=== PATIENT | female | born 1940 | race Caucasian/White ===

== ENCOUNTER 2020-11-21 12:17 | Emergency (ER) | payer MEDICARE, BC ==
--- NOTE | 2020-11-21 12:38 | EDM.PDOC ---
ED HPI GENERAL MEDICAL PROBLEM - General Chief Complaint: Cardiovascular Problem Stated Complaint: SENT BY [place] ECHO Time Seen by Provider: 11/21/20 12:23 Source of Information: Reports: Patient, Provider History Limitations: Reports: No Limitations - History of Present Illness INITIAL COMMENTS - FREE TEXT/NARRATIVE: 80-year-old female sent to the emergency department from [facility] where she had just undergone an echocardiogram. Apparently was being interpreted by cardiology at [facility] in [place] and they identified either a myxoma in her heart or a thrombus. It was felt that she needed to be brought to [place] to be admitted for further evaluation in this regard. Patient was undergoing cardiac testing in preparation for left total hip replacement. She had undergone 3 stent placement in 2002 after suffering a mild heart attack. She does not think she has any history of congestive failure. Denies cough or sputum production. She denies any history of TIA or stroke recently. 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 She denies any recent chest pains or dyspnea. Patient did have both of her COVID-19 vaccine shots finished up in June of this year. Onset: Today (Echocardiogram identified an abnormality today within her heart. Unclear of its etiology at this time) Onset Date: 11/21/20 Location: Reports: Other (Apparently has a mass within her heart. Unclear if this is thrombus versus myxoma) Quality: Reports: Other (Asymptomatic) Improves with: Reports: None Worsens with: Reports: None Context: Reports: Other (Abnormal echocardiogram today with discovery of a mass within her heart either thrombus or myxoma). Denies: Activity, Exercise, Lifting, Sick Contact, Trauma Associated Symptoms: Reports: Malaise. 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) - Related Data Allergies Allergy/AdvReac Type Severity Reaction Status Date / Time Sulfa (Sulfonamide Allergy Joint Pain Verified 11/21/20 12:31 Antibiotics) Home Meds: Home Meds Isosorbide Mononitrate [Isosorbide Mononitrate ER] 30 mg PO DAILY 10/14/14 [History] Losartan [Cozaar] 100 mg PO DAILY 10/14/14 [History] Simvastatin [Zocor] 40 mg PO DAILY 10/14/14 [History] Triamterene/Hydrochlorothiazid [Triamterene-HCTZ 75-50 MG] 1 tab PO DAILY 10/14/14 [History] cloNIDine [Catapres] 0.2 mg PO DAILY 10/14/14 [History] metFORMIN HCl [Metformin HCl] 1,000 mg PO ACBREAKFAST 10/14/14 [History] metFORMIN HCl [Metformin HCl] 500 mg PO ACDINNER 10/14/14 [History] Metoprolol Tartrate [Lopressor] 100 mg PO BID 10/15/14 [History] Aspirin [Halfprin] 81 mg PO DAILY 11/21/20 [History] Cetirizine [ZyrTEC] 10 mg PO DAILY 11/21/20 [History] Latanoprost/Pf [Latanoprost 0.005% Eye Drop] 1 applicful EYEBOTH BEDTIME 11/21/20 [History] Omeprazole Magnesium [Prilosec Otc] 20 mg PO DAILY 11/21/20 [History] Psyllium [Metamucil] 1 gm PO DAILY 11/21/20 [History] Timolol Maleate/PF [Timolol Maleate 0.5% Eye Drop] 1 applicful EYEBOTH DAILY 11/21/20 [History] Past Medical History Other HEENT History: right ischemic optic neuropathy Cardiovascular History: Reports: High Cholesterol, Hypertension, SC (She believes she has 3 stent placement in 2002 and did have a mild heart attack at that time.), Stents Other Cardiovascular History: Discovery today November 21, 2020 of a mass within her heart either myxoma or thrombus. 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 - Past Surgical History Cardiovascular Surgical History: Reports: Coronary Artery Stent (X3 placed in 2002.) Other Cardiovascular Surgeries/Procedures: stent x3 GI Surgical History: Reports: Samm Fundoplication Musculoskeletal Surgical History: Reports: Hip Replacement, Shoulder Surgery (Bilateral reversal total shoulder replacements), Other (See Below) (Hoping to have the left hip replaced soon) Other Musculoskeletal Surgeries/Procedures:: right hip & left shoulder replacement Social & Family History - Living Situation & Occupation Living situation: Reports: Occupation: Retired ED ROS GENERAL - Review of Systems Review Of Systems: See Below Constitutional: Reports: Fatigue. Denies: Fever, Chills, Malaise, Weakness, Decreased Appetite, Weight Loss HEENT: Reports: Glasses, Other (Has poor vision in the right eye and never recovered after his central retinal artery occlusion several years ago. Is followed by Dr. Galindo for this) Respiratory: Reports: No Symptoms Cardiovascular: Reports: Blood Pressure Problem, Dyspnea on Exertion. Denies: Chest Pain, Claudication, Edema, Lightheadedness, Orthopnea, Palpitations Endocrine: Reports: Fatigue GI/Abdominal: Reports: Constipation (There is no problems with constipation.) : Reports: Frequency, Incontinence (Rare incontinence. Urge and stress components), Other Musculoskeletal: Reports: Joint Pain (Most of her pain currently is in her left hip which is due to be replaced. She has generalized osteoarthritis involving hands feet ankles knees back and neck.) Skin: Reports: No Symptoms Neurological: Reports: No Symptoms Psychiatric: Reports: No Symptoms Hematologic/Lymphatic: Reports: No Symptoms Immunologic: Reports: No Symptoms ED EXAM, GENERAL - Physical Exam Exam: See Below Exam Limited By: No Limitations General Appearance: Alert, WD/WN, Anxious, Other (Temperature is 35.5 degrees which is likely inaccurate. Heart rate 60 and sinus. Respiratory to 16 with O2 sats of 98% on room air. BP 188/79) Eye Exam: Bilateral Eye: Normal Inspection (No blepharal pallor or scleral icterus.), PERRL Ears: Normal TMs Throat/Mouth: Normal Inspection, Normal Lips, Normal Oropharynx Head: Atraumatic, Normocephalic Neck: Normal Inspection, Supple, Non-Tender, Full Range of Motion, Other (Patient reports she has had carotid ultrasound done on several occasions. Cannot remember when it was last done.). No: Carotid Bruit, Lymphadenopathy (L), Lymphadenopathy (R) Respiratory/Chest: No Respiratory Distress, Lungs Clear, Normal Breath Sounds, No Accessory Muscle Use. No: Respiratory Distress Cardiovascular: Normal Peripheral Pulses, Regular Rate, Rhythm, No Edema, No Gallop, No Murmur, No Rub Peripheral Pulses: 2+: Carotid (L), Carotid (R), Posterior Tibial (L), Posterior Tibial (R), Dorsalis Pedis (L), Dorsalis Pedis (R) GI/Abdominal: Normal Bowel Sounds, Soft, Non-Tender, No Organomegaly, No Mass, Pelvis Stable, Distended (Mildly distended and firm to palpation.), Other (Surgical scar secondary to Samm fundoplication) Back Exam: Other (Increased lordosis lumbar spine. Mild ). No: CVA Tenderness (L) (ptosis thoracic spine), CVA Tenderness (R) Extremities: Normal Inspection, Non-Tender, No Pedal Edema, Other (Been asked of osteoarthritic changes both knees. Very limited internal or external rotation left hip due to pain.). No: Pedal Edema Neurological: Alert, Oriented, CN II-XII Intact, Normal Cognition. No: Normal Gait (Limping gait) Psychiatric: Normal Affect, Normal Mood, Anxious Skin Exam: Warm, Dry, Intact, Normal Color, No Rash #1 Interpretation EKG Date: 11/21/20 Time: 13:09 Rhythm: Other Rate (Beats/Min): 57 [place]: Normal P-Wave: Enlarged (Sitter left atrial hypertrophy) QRS: Other (Q waves V1 and near Q-wave in V2 consider old anteroseptal myocardial infarction) ST-T: Other (Nonspecific T wave flattening V2 and V3.) EKG Interpretation Comments: Borderline ECG Course - Vital Signs Last Recorded V/S: Last Vital Signs Temp 35.6 C L 11/21/20 13:57 Pulse 59 L 11/21/20 13:57 Resp 18 11/21/20 13:57 BP 160/60 H 11/21/20 13:57 Pulse Ox 96 11/21/20 13:57 - Orders/Labs/Meds Orders: Active Orders 24 hr Category Date Time Status EKG Documentation Completion [RC] STAT Care 11/21/20 12:33 Active Labs: Laboratory Tests 11/21/20 11/21/20 11/21/20 Range/Units 12:46 12:46 12:46 WBC 4.89 (3.98-10.04) K/mm3 RBC 4.02 (3.98-5.22) M/mm3 Hgb 11.8 D (11.2-15.7) gm/dl Hct 35.8 (34.1-44.9) % MCV 89.1 D (79.4-94.8) fl MCH 29.4 (25.6-32.2) pg MCHC 33.0 (32.2-35.5) g/dl RDW Std Deviation 44.7 (36.4-46.3) fL Plt Count 226 (182-369) K/mm3 MPV 11.3 (9.4-12.3) fl Neut % (Auto) 39.1 (34.0-71.1) % Lymph % (Auto) 50.1 (19.3-51.7) % [place] % (Auto) 8.4 (4.7-12.5) % Eos % (Auto) 1.8 (0.7-5.8) Baso % (Auto) 0.6 (0.1-1.2) % Neut # (Auto) 1.91 (1.56-6.13) K/mm3 Lymph # (Auto) 2.45 (1.18-3.74) K/mm3 [place] # (Auto) 0.41 H (0.24-0.36) K/mm3 Eos # (Auto) 0.09 (0.04-0.36) K/mm3 Baso # (Auto) 0.03 (0.01-0.08) K/mm3 PT 10.9 (9.7-12.0) SECONDS INR 1.02 APTT 27.4 (21.7-31.4) SECONDS Sodium 137 D (136-145) mEq/L Potassium 4.1 (3.5-5.1) mEq/L Chloride 100 (98-107) mEq/L Carbon Dioxide 27 (21-32) mEq/L Anion Gap 14.1 (5-15) BUN 9 (7-18) mg/dL Creatinine 0.9 (0.55-1.02) mg/dL Est Cr Clr Drug Dosing 35.81 mL/min Estimated GFR (MDRD) > 60 (>60) mL/min BUN/Creatinine Ratio 10.0 L (14-18) Glucose 101 H (70-99) mg/dL Calcium 8.5 (8.5-10.1) mg/dL Magnesium 1.8 (1.8-2.4) mg/dL Total Bilirubin 0.4 (0.2-1.0) mg/dL AST 14 L (15-37) U/L ALT 15 (14-59) U/L Alkaline Phosphatase 57 (46-116) U/L Troponin I < 0.017 (0.00-0.056) ng/mL C-Reactive Protein <0.2 (<1.0) mg/dL NT-Pro-B Natriuret Pep (0-450) pg/mL Total Protein 6.6 (6.4-8.2) g/dl Albumin 3.4 (3.4-5.0) g/dl Globulin 3.2 gm/dL Albumin/Globulin Ratio 1.1 (1-2) TSH 3rd Generation 2.113 (0.358-3.74) uIU/mL Urine Color (Yellow) Urine Appearance (Clear) Urine pH (5.0-8.0) Ur Specific [place] (1.005-1.030) Urine Protein (Negative) Urine Glucose (UA) (Negative) Urine Ketones (Negative) Urine Occult Blood (Negative) Urine Nitrite (Negative) Urine Bilirubin (Negative) Urine Urobilinogen (0.2-1.0) Ur Leukocyte Esterase (Negative) Urine RBC (0-5) /hpf Urine WBC (0-5) /hpf Ur Epithelial Cells (0-5) /hpf Urine Bacteria (FEW) /hpf Urine Mucus (FEW) /hpf SARS-CoV-2 RNA (JOY) (NEGATIVE) 11/21/20 11/21/20 11/21/20 Range/Units 12:46 12:55 13:11 WBC (3.98-10.04) K/mm3 RBC (3.98-5.22) M/mm3 Hgb (11.2-15.7) gm/dl Hct (34.1-44.9) % MCV (79.4-94.8) fl MCH (25.6-32.2) pg MCHC (32.2-35.5) g/dl RDW Std Deviation (36.4-46.3) fL Plt Count (182-369) K/mm3 MPV (9.4-12.3) fl Neut % (Auto) (34.0-71.1) % Lymph % (Auto) (19.3-51.7) % [place] % (Auto) (4.7-12.5) % Eos % (Auto) (0.7-5.8) Baso % (Auto) (0.1-1.2) % Neut # (Auto) (1.56-6.13) K/mm3 Lymph # (Auto) (1.18-3.74) K/mm3 [place] # (Auto) (0.24-0.36) K/mm3 Eos # (Auto) (0.04-0.36) K/mm3 Baso # (Auto) (0.01-0.08) K/mm3 PT (9.7-12.0) SECONDS INR APTT (21.7-31.4) SECONDS Sodium (136-145) mEq/L Potassium (3.5-5.1) mEq/L Chloride (98-107) mEq/L Carbon Dioxide (21-32) mEq/L Anion Gap (5-15) BUN (7-18) mg/dL Creatinine (0.55-1.02) mg/dL Est Cr Clr Drug Dosing mL/min Estimated GFR (MDRD) (>60) mL/min BUN/Creatinine Ratio (14-18) Glucose (70-99) mg/dL Calcium (8.5-10.1) mg/dL Magnesium (1.8-2.4) mg/dL Total Bilirubin (0.2-1.0) mg/dL AST (15-37) U/L ALT (14-59) U/L Alkaline Phosphatase (46-116) U/L Troponin I (0.00-0.056) ng/mL C-Reactive Protein (<1.0) mg/dL NT-Pro-B Natriuret Pep 268 (0-450) pg/mL Total Protein (6.4-8.2) g/dl Albumin (3.4-5.0) g/dl Globulin gm/dL Albumin/Globulin Ratio (1-2) TSH 3rd Generation (0.358-3.74) uIU/mL Urine Color Light yellow (Yellow) Urine Appearance Clear (Clear) Urine pH 7.5 (5.0-8.0) Ur Specific [place] 1.020 (1.005-1.030) Urine Protein Negative (Negative) Urine Glucose (UA) Negative (Negative) Urine Ketones Negative (Negative) Urine Occult Blood Negative (Negative) Urine Nitrite Negative (Negative) Urine Bilirubin Negative (Negative) Urine Urobilinogen 0.2 (0.2-1.0) Ur Leukocyte Esterase Negative (Negative) Urine RBC 0-5 (0-5) /hpf Urine WBC 0-5 (0-5) /hpf Ur Epithelial Cells 0-5 (0-5) /hpf Urine Bacteria Not seen (FEW) /hpf Urine Mucus Not seen (FEW) /hpf SARS-CoV-2 RNA (JOY) Negative (NEGATIVE) - Radiology Interpretation Free Text/Narrative:: 80-year-old female brought to the ED from [facility] where she underwent an echocardiogram this morning. She is undergoing a cardiac work-up prior to contemplating having her left hip replaced. She has had previous myocardial infarction and 3 stent placement in 2002. Echocardiogram done this morning sugg ested that she has a lesion within her heart either thrombus or a myxoma. She was therefore sent to the ED for further evaluation work-up and definitive disposition to [facility] in [place]. Examination reveals systolic hypertension. No other major abnormalities appreciated on exam. She had a chest x-ray done a week ago and it will not be repeated. ECG and labs to be done. Coronavirus screen. At this point time her is willing to drive her to [place] and I see no need for an ambulance transportation. Neither does the patient. - Re-Assessments/Exams Free Text/Narrative Re-Assessment/Exam: 11/21/20 13:47 White count is normal at 4.89. Differential shows 39.1% neutrophils but an elevated lymphocyte count at 50.1% or right shift. Hemoglobin slightly low at 11.8 with hematocrit of 35.8. Platelet count 226,000. Sodium 137 with a potassium of 4.1 and a chloride of 100. Bicarb is 27. Anion gap is 14.1. BUN is 9 with a creatinine of 0.9. GFR is greater than 60. Glucose is 101 with a calcium of 8.5. Magnesium is 1.8. Bilirubin is 0.4 and the remainder the liver function is normal. Troponin I is less than 0.017. C-reactive protein less than 0.2. Total protein 6.6. Albumin fraction is 3.4 with a globulin of 3.2. TSH is 2.113. Urinalysis shows no signs of infection. COVID-19 screen is negative. 11/21/20 14:31 patient has been accepted at [facility] in [place] by on- call hospitalist . She will be admitted for observation status with likely plan transesophageal echocardiogram to determine if there is indeed a mass within her heart. Patient will be transferred to that facility as soon as a bed becomes available. 11/21/20 15:01 that has now become available for [facility] and therefore she will be discharged from the department. Departure - Departure Time of Disposition: 15:01 Disposition: DC/Tfer to Acute Hospital 02 Reason for Transfer *Q: Other Condition: Fair Clinical Impression: Abnormal echocardiogram findings without diagnosis Coronary artery disease Qualifiers: Coronary Disease-Associated Artery/Lesion type: [place] artery [place] vs. transplanted heart: [place] heart Associated angina: without angina Qualified Code(s): I25.10 - Atherosclerotic heart disease of [place] coronary artery without angina pectoris Referrals: Dilip Hough MD [Primary Care Provider] - Forms: ED Department Discharge Additional Instructions: Patient to be transferred to [facility] in [place] due to abnormal findings on echocardiogram done at [facility] today. There is a concern for a mass within the heart. It is undetermined if this is thrombus versus myxoma. Further investigations are required by cardiology services. Sepsis Event Note (ED) - Evaluation Sepsis Screening Result: No Definite Risk - Focused Exam Vital Signs: Vital Signs Temp Pulse Resp BP Pulse Ox 11/21/20 13:57 35.6 C L 59 L 18 160/60 H 96 11/21/20 12:25 35.5 C L 60 16 188/79 H 98 - My Orders Last 24 Hours: My Active Orders 11/21/20 12:33 EKG Documentation Completion [RC] STAT - Assessment/Plan Last 24 Hours: My Active Orders 11/21/20 12:33 EKG Documentation Completion [RC] STAT
[2020-11-21 13:58] VITALS: BP 160/60; PULSE 59
== END 2020-11-21 15:25 ==
LOC: JD.ED 12:17
DX: I25.10 Atherosclerotic heart disease of native coronary artery without angina pectoris (principal); R94.31 Abnormal electrocardiogram [ECG] [EKG]; Z20.822 Contact with and (suspected) exposure to COVID-19; E78.00 Pure hypercholesterolemia, unspecified; I10 Essential (primary) hypertension; I25.2 Old myocardial infarction; Z95.5 Presence of coronary angioplasty implant and graft; Z79.82 Long term (current) use of aspirin; Z79.899 Other long term (current) drug therapy; Z88.2 Allergy status to sulfonamides
CPT/HCPCS: 36415; 80053; 81001; 83735; 83880; 84443; 84484; 85025; 85610; 85730; 86140; 93005; 99285; U0002

== ENCOUNTER 2022-01-18 15:22 | Emergency (ER) | payer MEDICARE, BC ==
[2022-01-18 15:32] VITALS: BP 164/76; PULSE 114
[2022-01-18 16:30] LABS: ESTIMATED GFR 26 mL/min (>60)
[2022-01-18] MEDS ORDERED: Sodium Chloride 0.9% 1,000 ML IV SCH (17:30)
== END 2022-01-18 18:23 ==
LOC: JD.ED 15:22
DX: M97.8XXA Periprosthetic fracture around other internal prosthetic joint, initial encounter (principal); E78.00 Pure hypercholesterolemia, unspecified; I10 Essential (primary) hypertension; I25.2 Old myocardial infarction; E11.9 Type 2 diabetes mellitus without complications; Z88.2 Allergy status to sulfonamides; Z79.899 Other long term (current) drug therapy; Z79.84 Long term (current) use of oral hypoglycemic drugs; Z79.82 Long term (current) use of aspirin; Z90.710 Acquired absence of both cervix and uterus
CPT/HCPCS: 36415; 73502; 80053; 81003; 83735; 85025; 86140; 96360; 99285; J7030

== ENCOUNTER 2022-02-07 13:49 | Inpatient (IN) | payer MEDICARE, BC ==
[2022-02-07] MEDS ORDERED: Sodium Chloride 0.9% 1,000 ML IV ONE (16:00)
[2022-02-07] MEDS ORDERED: Furosemide 20 MG/2 ML VIAL IVPUSH ONE (16:09)
[2022-02-07] MEDS: Calcium Gluconate 10% 1 GM/10 ML SDV IVPUSH ONE ×2 (16:30→18:33)
[2022-02-07] MEDS ORDERED: Ondansetron 4 MG/2 ML SDV IV PRN (17:49)
[2022-02-07] MEDS ORDERED: oxyCODONE 5 MG Tab PO PRN (17:49)
[2022-02-07] MEDS ORDERED: Acetaminophen 325 MG Tab PO PRN (17:49)
[2022-02-07] MEDS ORDERED: HYDROmorphone 0.5 MG/0.5 ML Syringe IVPUSH PRN (17:49)
[2022-02-07] MEDS ORDERED: traMADol 50 MG Tab PO SCH (18:00)
[2022-02-07 18:53] LABS: ESTIMATED GFR 16 mL/min (>60)
[2022-02-07] MEDS: Sodium Chloride 0.9% 1,000 ML IV SCH (19:15)
[2022-02-07] MEDS: cloNIDine 0.1 MG Tab PO SCH (19:15)
[2022-02-07] MEDS: Metoprolol Tartrate 100 MG Tab PO SCH (20:07)
[2022-02-07] MEDS: Aspirin 81 MG Tab.EC PO SCH (20:08)
[2022-02-07] MEDS: traMADol 50 MG Tab PO SCH (20:09)
[2022-02-07] MEDS: Insulin Lispro 100 Unit/ML 3 ML KwikPen SUBCUT SCH (20:13)
[2022-02-08] MEDS: traMADol 50 MG Tab PO SCH ×4 (02:52→20:53)
[2022-02-08] MEDS: Sodium Chloride 0.9% 1,000 ML IV SCH ×2 (05:15→14:55)
[2022-02-08] MEDS: Insulin Lispro 100 Unit/ML 3 ML KwikPen SUBCUT SCH ×4 (08:02→21:47)
[2022-02-08] MEDS: Aspirin 81 MG Tab.EC PO SCH ×2 (09:10→20:51)
[2022-02-08] MEDS: amLODIPine 5 MG Tab PO SCH (09:10)
[2022-02-08] MEDS: Metoprolol Tartrate 100 MG Tab PO SCH ×2 (09:12→20:54)
[2022-02-08] MEDS: Pantoprazole 40 MG Tab.CR PO SCH (09:18)
[2022-02-08] MEDS: Timolol Maleate 0.5% Ophth Soln 5 ML Bottle EYEBOTH SCH (09:18)
[2022-02-08] MEDS: cloNIDine 0.1 MG Tab PO SCH (18:03)
[2022-02-08] MEDS ORDERED: Latanoprost 0.005% Ophth Soln 2.5 ML Bottle EYEBOTH SCH (21:00)
[2022-02-09] MEDS: Sodium Chloride 0.9% 1,000 ML IV SCH (00:39)
[2022-02-09] MEDS: traMADol 50 MG Tab PO SCH ×2 (04:24→09:01)
[2022-02-09] MEDS: Insulin Lispro 100 Unit/ML 3 ML KwikPen SUBCUT SCH ×2 (06:39→11:16)
[2022-02-09 08:28] VITALS: BP 157/61; PULSE 58
[2022-02-09] MEDS: Pantoprazole 40 MG Tab.CR PO SCH (09:00)
[2022-02-09] MEDS: amLODIPine 5 MG Tab PO SCH (09:00)
[2022-02-09] MEDS: Aspirin 81 MG Tab.EC PO SCH (09:00)
[2022-02-09] MEDS: Metoprolol Tartrate 100 MG Tab PO SCH (09:01)
[2022-02-09] MEDS: Timolol Maleate 0.5% Ophth Soln 5 ML Bottle EYEBOTH SCH (09:04)
== END 2022-02-09 11:40 | disposition home or self-care (01) | DRG 641 ==
LOC: JD.ED 13:49 → UNDOADMIN 17:41 → JD.MS 17:41
PROVIDERS: ADMIT Hospitalist; ATTEND Hospitalist
DX: E87.5 Hyperkalemia (principal); N17.9 Acute kidney failure, unspecified; I25.10 Atherosclerotic heart disease of native coronary artery without angina pectoris; K21.9 Gastro-esophageal reflux disease without esophagitis; I10 Essential (primary) hypertension; M10.9 Gout, unspecified; E11.9 Type 2 diabetes mellitus without complications; I25.89 Other forms of chronic ischemic heart disease; Z95.1 Presence of aortocoronary bypass graft; Z79.84 Long term (current) use of oral hypoglycemic drugs; I69.398 Other sequelae of cerebral infarction; H47.011 Ischemic optic neuropathy, right eye; Z79.82 Long term (current) use of aspirin; Z79.899 Other long term (current) drug therapy; Z88.1 Allergy status to other antibiotic agents; Z88.8 Allergy status to other drugs, medicaments and biological substances; Z88.2 Allergy status to sulfonamides; H54.7 Unspecified visual loss; E78.00 Pure hypercholesterolemia, unspecified; I25.2 Old myocardial infarction; Z95.5 Presence of coronary angioplasty implant and graft; I12.9 Hypertensive chronic kidney disease with stage 1 through stage 4 chronic kidney disease, or unspecified chronic kidney disease; N18.9 Chronic kidney disease, unspecified; Z90.710 Acquired absence of both cervix and uterus; M19.90 Unspecified osteoarthritis, unspecified site; G43.909 Migraine, unspecified, not intractable, without status migrainosus; E11.22 Type 2 diabetes mellitus with diabetic chronic kidney disease; E87.6 Hypokalemia; Z90.89 Acquired absence of other organs; Z98.49 Cataract extraction status, unspecified eye; Z96.643 Presence of artificial hip joint, bilateral; Z96.611 Presence of right artificial shoulder joint; Z96.612 Presence of left artificial shoulder joint
CPT/HCPCS: 36415; 76770; 76770-26; 80048; 81001; 82947; 85027; 93005; 96361; 96374; 96375; 99285-25; A9270-GY; J0610; J1815; J1940; J7030